=== PATIENT | male | born 1940 ===

== ENCOUNTER → 2020-06-12 08:00 | Outpatient (CLI) | payer OTHER ==
[~2020-06-12 08:00] MED LIST: GLIMEPIRIDE4 M1 PO; LEVOXYL50 MCG PO; METOPROLOL SUCC50 MG PO; PENTOXIFYLLINE400 MG PO; TERAZOSIN HCL2 M1 PO; TRADJENTA5 MG PO; ZOCOR40 MG PO
== END | disposition home or self-care (01) ==
LOC: LAB 08:00 → ADM 10:45 → CIR.AMB 06-18 07:00 → EDSTATUS 06-18 10:45 → CIR.AMB 06-18 10:45
PROVIDERS: ATTEND Surgery
DX: K40.90 Unilateral inguinal hernia, without obstruction or gangrene, not specified as recurrent (principal); Z01.818 Encounter for other preprocedural examination; I10 Essential (primary) hypertension; Z20.818 Contact with and (suspected) exposure to other bacterial communicable diseases; Z20.828 Contact with and (suspected) exposure to other viral communicable diseases; Z20.822 Contact with and (suspected) exposure to COVID-19